=== PATIENT | male | born 1975 | race Caucasian/White ===

== ENCOUNTER 2024-09-19 10:53 | Emergency (ER) | payer OTHER, SELFPAY ==
[2024-09-19 11:18] VITALS: BP 139/91; PULSE 78; RESP 18; TEMP 36.6; O2SAT 100
--- NOTE | 2024-09-19 12:13 | ED.HEATRA ---
HPI - Head Injury General Chief complaint: Head Injury <Camille Fulton PA-C - Last Filed: 09/19/24 17:44> Stated complaint: Head laceration <Camille Fulton PA-C - Last Filed: 09/19/24 17:44> Time Seen by Provider: 09/19/24 12:13 <Camille Fulton PA-C - Last Filed: 09/19/24 17:44> Focused HPI: This is a 49 year old male that presents to the ER for head injury. Sustained just prior to arrival. Reports he bent forward and hit the corner of a shelf. Reports a laceration to the scalp. Denies loss of consciousness, vision changes, vomiting, numbness. He is not on anticoagulation. Unsure of last tetanus vaccination. GENERAL: Well-appearing, well-nourished, and in no acute distress. HEAD: Normocephalic. 1.5cm superficial flap laceration to the top of the scalp CHEST: Clear to auscultation. ?No respiratory distress. HEART: Regular rate and rhythm.? NEURO: ?Alert and oriented x3. Patient screened in triage and initial orders placed.? ?Additional care and disposition to be based upon?diagnostic testing and treatment. <Camille Fulton PA-C - Last Filed: 09/19/24 17:44> History of Present Illness HPI Narrative: Agree with HPI <Denny Lance MD - Last Filed: 09/19/24 15:06> Related Data Allergies/Adverse reactions: Allergies Allergy/AdvReac Type Severity Reaction Status Date / Time No Known Allergies Allergy Verified 09/19/24 11:22 <Camille Fulton PA-C - Last Filed: 09/19/24 17:44> Review of Systems Constitutional: Constitutional: Reports no additional constitutional complaints <Denny Lance MD - Last Filed: 09/19/24 15:06> Integumentary/Breasts: Skin/Breast: Reports system reviewed and no additional complaints, except as docu <Denny Lance MD - Last Filed: 09/19/24 15:06> Neurologic: Reports system reviewed and no additional complaints, except as documented <Denny Lance MD - Last Filed: 09/19/24 15:06> PMFSH Past Medical History Medical History: Medical History (Updated 09/19/24 @ 17:44 by Camille Fulton PA-C) Healthy adult male <Camille Fulton PA-C - Last Filed: 09/19/24 17:44> Exam Narrative: GENERAL: Well-appearing, well-nourished, and in no acute distress. HEAD: Normocephalic, 1.5 cm semi circular laceration that does not lift like a flap. ENT: Mucous membranes moist. NECK: Supple. NEURO: Alert and oriented x3. PSYCH: Normal mood and affect. <Denny Lance MD - Last Filed: 09/19/24 15:06> Course Course Emergency Course: One staple placed. Tetanus updated. Discharge home. Educated on staple remover. <Denny Lance MD - Last Filed: 09/19/24 15:06> Vital Signs Vital signs: Vital Signs Temperature 97.8 F 09/19/24 11:18 Pulse Rate 78 09/19/24 11:18 Respiratory Rate 18 09/19/24 11:18 Blood Pressure 139/91 H 09/19/24 11:18 Pulse Oximetry 100 09/19/24 11:18 Oxygen Delivery Room Air 09/19/24 11:18 Temperature 98.9 F 09/19/24 16:02 Pulse Rate 76 09/19/24 16:02 Respiratory Rate 18 09/19/24 16:02 Blood Pressure 135/72 09/19/24 16:02 Pulse Oximetry 100 09/19/24 16:02 Oxygen Delivery Room Air 09/19/24 11:18 <Camille Fulton PA-C - Last Filed: 09/19/24 17:44> Vital Signs Temperature 97.8 F 09/19/24 11:18 Pulse Rate 78 09/19/24 11:18 Respiratory Rate 18 09/19/24 11:18 Blood Pressure 139/91 H 09/19/24 11:18 Pulse Oximetry 100 09/19/24 11:18 Oxygen Delivery Room Air 09/19/24 11:18 Temperature 98.9 F 09/19/24 16:02 Pulse Rate 76 09/19/24 16:02 Respiratory Rate 18 09/19/24 16:02 Blood Pressure 135/72 09/19/24 16:02 Pulse Oximetry 100 04/28/25 16:02 Oxygen Delivery Room Air 09/19/24 11:18 <Denny Lance MD - Last Filed: 09/19/24 15:06> Procedures Laceration Laceration 1: Date: 09/19/24 <Denny Lance MD - Last Filed: 09/19/24 15:06> Time: 15:03 <Denny Lance MD - Last Filed: 09/19/24 15:06> Site: scalp <Denny Lance MD - Last Filed: 09/19/24 15:06> Size (cm): 1.5 <Denny Lance MD - Last Filed: 09/19/24 15:06> Description: other (semicircular) <Denny Lance MD - Last Filed: 09/19/24 15:06> Depth: simple, single layer <Denny Lance MD - Last Filed: 09/19/24 15:06> Pre-repair: irrigated <Denny Lance MD - Last Filed: 09/19/24 15:06> ====== Skin Level ======: Skin layer closed with: shun <Denny Lance MD - Last Filed: 09/19/24 15:06> Number of sutures: 1 <Denny Lance MD - Last Filed: 09/19/24 15:06> ====== Subcutaneous Layer ======: ====== Muscle Layer ======: ====== Tendon Layer ======: Discharge Plan Discharge Clinical Impression: Laceration of scalp Qualifiers: Encounter type: initial encounter Qualified Code(s): S01.01XA - Laceration without foreign body of scalp, initial encounter <Camille Fulton PA-C - Last Filed: 09/19/24 17:44> Patient Disposition: Home <CHEL Phillips Last Filed: 09/19/24 17:44> Condition: Stable <CHEL Phillips Last Filed: 09/19/24 17:44> Instructions: Staple Care (ED) <Camille Fulton PA-C - Last Filed: 09/19/24 17:44> Additional Instructions: Remove your staple in 5 days. You may return to work. Return the ER if the wound is draining pus, you have fever over 100.4? F, or you have additional concerns. <Camille Fulton PA-C - Last Filed: 09/19/24 17:44> Patient Language: Setswana <Cmaille Fulton PA-C - Last Filed: 09/19/24 17:44> Follow-up/Referrals: PHYSICIAN,SUPERVISOR WORD PROCESSING [Primary Care Provider] - <Camille Fulton PA-C - Last Filed: 09/19/24 17:44> Stand Alone Forms: Work/School Release IP <Camille Fulton PA-C - Last Filed: 09/19/24 17:44>
[2024-09-19] MEDS: TETANUS,DIPHTHERIA,AC PERTUSSIS ADULT (0.5 ML) BOOSTRIX IM (12:41)
[2024-09-19 16:02] VITALS: BP 135/72; PULSE 76; RESP 18; TEMP 37.2; O2SAT 100
--- OUTSIDE RECORDS SUMMARY | 2024-09-19 17:48 | XMS_ITS | Continuity of Care Document ---
Author Name [facility] Address [address] [place] [address] Organization [facility] Care Team Providers Care Cardiovascular Disease Specialist Name Role [facility] Unavailable Problems Problem Status Onset Date Problem Type Date of Resolution Comme nts Source After-cataract with vision obscured (disorder) Active Condition Encounters Location Location Details Encounter Type Encounter Number Reason For Visit Attending Provider ADM Date DC Date Status Source [facility] OUTPATIENT [id number] 1 [place] [facility] [place] Procedures Procedure Code Date Perfomer Comments Source Cataracts- [facility]
--- OUTSIDE RECORDS SUMMARY | 2024-09-19 17:48 | XMS_ITS | Continuity of Care Document ---
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 Glucophage 500 mg Tab take 1 tablet by oral route 2 times every day. NEED APPT and LABS!!! - Active Please make an appt to be seen for any additional refills! ibuprofen 600 mg Tab take 1 tablet (600MG) by oral route 3 times every day with food 600 MG - Active Aleve 220 mg Tab take 1 tablet (220MG) by oral route every 12 hours as needed 220 MG - Active Elocon 0.1 % Topical Cream apply by topical route every day a thin layer to the affected area(s) - Active lancets to use TID 250.00 give 1 month supply - Active One Touch Test Strips one touch ultra mini test strips give 1 month supply 250.00checks bs TID - Active Prinivil 20 mg Tab 1 PO QD - No Longer Active NEEDS APPT FOR ANY MORE REFILLS!! Procedures Procedure Date Office/outpatient visit,est, mod 2012 Oximetry Office/outpatient visit,est, mod 2011 Joint Injec/aspirat Small-finger,toe September Depo Medrol 80 MG inj Advance Directives Directive Yes / No Effective Date File Name No Information Encounters Encounter Description Practice Location Reason(s) For Visit Diagnoses Date Provider Providers Copied on Encounter [facility], [address] [facility] [address], [place], [place], [id number], [place] tel:[phone] [facility] No Information 4 Zaid Schneider. [address] [facility], [address], [place], [place], [id number], [place]. tel:[phone] [facility], [address] [place] [address], [place], [place], [address], [place] tel:[phone] [facility] No Information 4 Emigdio Vicente. [address] [facility], [place] [address], [place], [place], [id number], [place]. tel:[phone] [facility], [address] [place] [address], [place], [place], [address], [place] tel:[phone] [facility] No Information 3 Zaid Schneider. [address] [facility], [place] [address], [place], [place], [address], [place]. tel:[phone] Office/outpa tient visit,est, [facility], [address] [place] [address], [place], [place], [address], [place] tel:[phone] [facility] Wrist Pain (chief complaint)di abetes (follow up) (chief complaint)hy pertension (chief complaint) Type II diabetes mellitusHyper tensionRight wrist pain 3 No Information Office/outpa tient visit,est, mod [facility], [address] [place] [address], [place], [place], [id number], [place] tel:[phone] [facility] right hip pain (chief complaint) DYSPNEA/RESP ABNM NECRight hip painSciatica 2 Zaid Schneider. [address] [facility], [address], [place], [place], [address], [place]. tel:[phone] Referring Provider: Wyatt Barker, [address] [facility] [address] [facility], [place], [address] . tel:[phone] [facility], [address] [facility], [place], [place], [id number], [place] tel:[phone] [facility] diabetes (chief complaint)hi p pain (chief complaint)ra sh (chief complaint)Da ndruff (chief complaint) BURSITIS, TROCHANTERIC AREADMII WO CMP UNCNTRLDHYPER LIPIDEMIA NEC/NOSSEBRRH EIC DERMATITIS NOSDERMATITIS NEC 1 Zaid Schneider. [address] [facility], Suite [facility], [place], [place], [address], [place]. tel:[phone] Referring Provider: Wyatt Barker, [address] [place] [address] Suite [facility], [place], [address] . tel:[phone] [facility], [address] [place], [place] [address] [facility], [place], [place], [id number], [place] tel:[phone] [facility] diabetes (chief complaint)hy pertension (chief complaint)hy perlipidemia (chief complaint) BENIGN HYPERTENSIONH YPERLIPIDEMIA NEC/NOSDMII WO CMP UNCNTRLD Jul-0 1 Zaid Schneider. [address] [place] [address], [address], [place], [place], [address], [place]. tel:[phone] Referring Provider: Wyatt Barker, [address] [facility] Suite [facility], [place], [address] . tel:[phone] [facility], [address] [place], [place] [address], [place], [place], [address], [place] tel:[phone] [facility] Diabetic Teaching (chief complaint) DMII WO CMP UNCNTRLD Jul-0 1 No Information Referring Provider: Wyatt Barker, [address] [facility] Suite [facility], [place], [address] . tel:[phone] [facility], [address] [place] [address], [id number], [place] tel:[phone] [facility] No Information 0 Zaid Schneider. [address] [facility], [facility] [address], [place], [place], [address], [place]. [phone] [facility], [address] [place] [address], [id number], [place] tel:[phone] [facility] tests results (chief complaint)di abetes (chief complaint)hy perlipidemia (chief complaint)hy pertension (chief complaint) DMII WO CMP UNCNTRLDBENIG N HYPERTENSIONH YPERLIPIDEMIA NEC/NOSDMII WO CMP UNCNTRLDHYPER LIPIDEMIA NEC/NOSBENIGN HYPERTENSIONS HORTNESS OF BREATH 0 Zaid Schneider. [address] [place] [address], [place] [address], [place], [place], [id number], [place]. tel:[phone] Referring Provider: Wyatt Barker, [address] [place] [address], [place], [address] . tel:[phone] [facility], [address] [place] [address], [id number], [place] tel:[phone] [facility] upper respiratory infection (chief complaint) BENIGN HYPERTENSIONF ATIGUE NECHEADACHEDE PRESSIVE DISORDER NEC 0 Zaid Schneider. [address] [place] [address], [place] [address], [place], [place], [id number], [place]. tel:[phone] Referring Provider: Wyatt Barker, [address] [place] [address], [place], [address] . tel:[phone] Family History Family Member Type Diagnosis Age At Onset Father Problem (finding) throat cancer Mother Problem (finding) Mother Problem (finding) stroke Problem (finding) Mother Problem (finding) coronary arter iosclerosis (Cause Of ) Mother Problem (finding) diabetes rj henderson in first degree relative Immunizations Vaccine Date Status Comments Tdap administered Source: [facility] unization Record Payers Payer name Insurance type Covered alliance party ID Authoriza tirosana(s) [facility] [id number] Social History Type Description Quantity Date Captured Comments Sex Male Smoking Status No Information Chief Complaint And Reason For Visit No Information Reason For Referral Reason For Referral No Information History Of Present Illness Encounter Date Complaint History Of Prese nt Illness hypertension Comorbid conditi ons include diabetes mellitus. It is currently improving. Risk factors include inactive lifestyle, male gender and obesity. Pertinent negatives include chest pain, claudication, confusion, diaphoresis, dyspnea, epistaxis, fatigue, headache, hematuria, irregular heartbeat/palpitations, nausea, tinnitus, transient weakness, tremor, visual disturbances and vomiting. diabetes (follow up) The problem is improving. Risk factors include: family history diabetes mellitus, obesity and sedentary lifestyle. Patient is compliant with using medication, follow-up, and using education materials. He Has been managed with oral medications. Home glucose readings: Min 110, Max 160, Avg 120. Pertinent negatives include blurred vision, burning of extremities, chest pain, constant hunger, dental disease, diarrhea, dysesthesias, dyspnea, erectile dysfunction, foot ulcers, frequent infections, frequent urination, heartburn, hypoglycemic episodes, impotence, increased fatigue, nocturia, polydipsia, slow healing wounds / sores, weight gain and weight loss. Additional information: Pt states blood sugars have been running really well. Interested in controlling diabetes with diet and exercise and barriers to exercise include large family and heavy workload.. Wrist Pain Onset: 3 Days Ag o. It occurs constantly and is worsening. Location: right wrist. The pain radiates to the right arm. The pain is sharp. Context: there was an injury. There are no aggravating factors. There are no relieving factors. Associated symptoms include joint instability, joint tenderness, popping and weakness. Pertinent negatives include bruising, crepitus, decreased mobility, difficulty initiating sleep, limping, locking, nocturnal awakening, nocturnal pain, numbness, spasms, swelling, tingling in the arms and tingling in the legs. Additional information: Pt states he fell and landed on wrist. He states if he puts pressure on it very sharp pain. Functional Status Date Functional Assessmen t No Information Instructions Date Instruction Additional Infor mation Call if symptoms persist Review medication side effects Prescribe medications Order consults Order labs/studies Review medication side effects Renew medications Prescribe medications Call if symptoms persist Call if symptoms persist Renew medications Prescribe medications Review medication side effects Call if symptoms persist Review medication side effects Review medications Call if symptoms persist Order labs/studies Review medication side effects Renew medications Prescribe medications Order consults Order labs/studies Call if symptoms persist Prescribe medications Renew medications Review medication side effects Assessments Type Assessment Date No Information Patient Care Teams Name Effective Dates (start - stop) Status Members No Information
--- OUTSIDE RECORDS SUMMARY | 2024-09-19 17:48 | XMS_ITS | Clinical Summary ---
Author [place] [facility] [place] [address] [facility] Address [address] [place] [address] Care Team Providers Care Manager Immunology Name Role Phone Imelda Fox MD Primary Care Provi cristina Allergies No known active allergies Medications insulin admin supplies insulin pen 28 Units daily 2 Active aspirin 81 mg chewable tabletIndicatio ns:Coronary artery disease involving chinik coronary artery of chinik heart without angina pectoris Take 1 tablet (81 mg total) by mouth daily 90 tablet 3 4 Active canagliflozin (Invokana) 300 mg tabletIndicatio ns:Type 2 diabetes mellitus with hyperglycemia, with long-term current use of insulin (HCC) Take 1 tablet (300 mg total) by mouth daily 90 tablet 4 Active insulin degludec (TRESIBA) 100 unit/mL (3 mL) pen for injectionIndica tions:type 2 diabetes mellitus Inject 0.28 mL (28 Units total) under the skin daily 3 mL 2 4 Active semaglutide (RYBELSUS) 3 mg tabletIndicatio ns:Type 2 diabetes mellitus with hyperglycemia, with long-term current use of insulin (HCC) 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 30 tablet 4 Active cyclobenzaprine (FLEXERIL) 10 mg tabletIndicatio ns:Adhesive capsulitis of right shoulder Take 1 tablet (10 mg total) by mouth nightly as needed for muscle spasms 30 tablet 1 4 Active metFORMIN (GLUCOPHAGE) 1,000 mg tabletIndicatio ns:Type 2 diabetes mellitus with hyperglycemia, with long-term current use of insulin (HCC) Take 1 tablet (1,000 mg total) by mouth daily with breakfast 90 tablet 4 Active atorvastatin (LIPITOR) 80 mg tablet Take 1 tablet (80 mg total) by mouth daily 90 tablet 4 Active carvediloL (Coreg) 12.5 mg tablet Take 1 tablet (12.5 mg total) by mouth 2 (two) times a day with meals 180 tablet 5 Active lisinopriL (PRINIVIL,ZESTR IL) 10 mg tablet Take 1 tablet (10 mg total) by mouth daily 90 tablet 5 Active Active Problems Problem Noted Date Diagnosed Date Type 2 diabetes mellitus wit h hyperglycemia, with long-term current use of insulin 11/11/2023 Assessment & Plan (11/11/2023 2:19 PM CDT): Chronic, worse Will adjust medication Will place referral to endo Will refer to diabetes education Call for questions or concerns Cigarette nicotine dependence without complicati on 11/11/2023 Assessment & Plan (11/11/2023 2:24 PM CDT): Chronic, stable Encouraged to work on cutting down Coronary artery disease invo lving chinik coronary artery of chinik heart without angina pectoris 02/25/2023 Assessment & Plan (11/11/2023 2:19 PM CDT): Chronic, stable Continue aspirin, lipitor, and blood pressure control Call for questions Assessment & Plan (02/25/2023 8:14 AM CDT): Chronic, stable EKG NSR, normal axis, RBBB Will refer to cardiology Continue aspirin, coreg, and lisinopril Will start statin once we have the labs Hypertension, essential 02/25/2023 Assessment & Plan (02/25/2023 8:14 AM CDT): Chronic, stable Continue current regimen Other hyperlipidemia 02/25/2023 Assessment & Plan (02/25/2023 8:15 AM CDT): Chronic, uncontrolled Will start a statin once we have results Type 2 diabetes mellitus with cardiac complicati on 02/25/2023 Assessment & Plan (11/11/2023 2:17 PM CDT): Chronic, worse No history of pancreatitis, thyroid cancer, MEN Will start oral semaglutide Continue insulin, invokana, and metformin for now Will place referral to [facility] endo Referral to diabetes education Lab recheck in 3 months Assessment & Plan (02/25/2023 8:16 AM CDT): Chronic- uncertain level control Continue insulin (uncertain type) Continue metformin and invokana Further guidance with labs Encounters Date Type Department Care Team Description 07/18/2024 Telephone [facility] [address] [facility] [address] [place] [address] Lucila Fragoso NP from Last 3 Months Immunizations Immunization Administration Dates Next Due Influenza, Quadrivalent, Spl it, Preservative Free, Intramuscular 08/10/2016 Influenza, Unspecified 05/28/2023(Deferr ed: Patient Refused),02/25/2023(Deferred: Patient decision),02/25/2023(Deferred: Patient Refused),02/22/2023(Deferred: Patient Refused),02/22/2022(Deferred: Patient Refused),02/22/2022(Deferred: Patient decision) MMR 12/31/2007 Pneumococcal Polysaccharide PPV23 08/10/2016 Td, adsorbed 05/12/2001,02/17/1991 Tdap 02/06/2017 Surgical History Surgery Date Site/Laterality Comments CATARACT EXTRACTION 04/13/2011 CORONARY ANGIOPLASTY WITH STENT PLACEMENT Medical History Medical History Date Comments Cataract 02/02/2011 Diabetes mellitus (HCC) Hypertension 04/04/2010 Heart attack (HCC) 2016 Family History Medical History Relation Name Comments Cancer Father Kapil Duarte Hypertension Father Kapil Duarte Diabetes Maternal Grandmother Aniya Briones Diabetes Mother More Briones Early Mother More Briones Heart attack Mother More Brioens Heart disease Mother More Briones Hypertension Mother More Briones Stroke Mother More Briones Vision loss Mother More Briones Diabetes Mother's Sister Eitan Dempsey Hypertension Mother's Sister Eitan Dempsey Kidney disease Mother's Sister Eitan Dempsey Relation Name Status Comments Father Kapil Duarte Maternal Grandmother Aniya Briones Mother More Briones Mother's Sister Eitan Dempsey Social History Tobacco Use Types Packs/Day Years Used Date Smoking Tobacco: Every Day Cigarettes 0.5 11.1 Started: 08/26/2013 Smokeless Tobacco: Never Tobacco Cessation:Ready to Q uit: Yes AUDIT-C Answer Date Recorded Q1: How often do you have a drink containing alcohol? 4 or more times a week 11/11/2023 Q2: How many drinks containi ng alcohol do you have on a typical day when you are drinking? 3 or 4 Q3: How often do you have si x or more drinks on one occasion? Never 11/11/2023 PHQ-2 Answer Date Recorded PHQ-2 Total Score (If total score is 3 or more points, staff should administer the PHQ-9) 0 11/11/2023 Personal Safety Answer Date Recorded Getting School Help Needed Not on file 05/05 Sex and Gender Information Value Date Recorded Sex Assigned at Not on file Legal Sex Male 2:15 PM CDT Gender Identity Male 11/27/2022 6:16 AM CDT Sexual Orientation Straight 11/27/2022 6: 16 AM CDT Obstetrics History Last Filed Vital Signs Vital Sign Reading Time Taken Comments Blood Pressure 112/76 11/11/2023 1:46 PM CDT Pulse 74 11/11/2023 1:46 PM CDT Temperature 36.7 C (98 F) 11/11/2023 1:46 PM CDT Respiratory Rate 16 11/11/2023 1:46 PM CDT Oxygen Saturation 98% 11/11/2023 1:46 PM CDT Inhaled Oxygen Concentration - - Weight 95.1 kg (209 lb 9.6 oz) 11/11/2023 1:46 P M CDT Height 185.4 cm (6' 1 ) 11/11/2023 1:46 PM CDT Body Mass Index 27.65 11/11/2023 1:46 PM CDT Plan of Treatment Health Maintenance Due Date Last Done Comments Hepatitis C Screening 1975 Hepatitis B Screening 1993 Regular Well Visit/Exam 18-64 1993 Pneumococcal vaccine <65 (2 of 2 - PCV) 08/10/2017 08/10/2016 Albumin Creatinine Ratio, Urine 02/26/2024 Foot Exam 02/26/2024 02/25/2023 Lipid Panel 02/26/2024 02/25/2023 Dilated Eye Exam 03/11/2024 03/11/2023 Hemoglobin A1C 05/10/2024 11/09/2023, 02/25/2023 eGFR 11/08/2024 11/09/2023, 02/25/2023 Depression Screening 11/10/2024 11/11/2023, 05/28/2023, 02/25/2023, Additional history exists Influenza Vaccine (Season Ended) 2025 08/11/19 17 Colon Cancer Screening-DNA Stool 09/08/2026 09/09/19 24 DTaP/Tdap/Td Vaccine (2 - Td or Tdap) 02/06/2027 02/06/2017, 05/12/2001, 02/17/1991 Procedures Procedure Name Priority Date/Time Associated Diagnosis Comments EGFR Routine 11/09/2023 7:42 AM CDT Type 2 diabetes mellitus with cardiac complication (HCC) HEMOGLOBIN A1C Routine 11/09/2023 7:42 AM CDT Type 2 diabetes mellitus with cardiac complication (HCC) STOOL DNA COLOGUARD Routine 09/09/2023 12:55 PM CDT Colon cancer screening HM DIABETES EYE EXAM Routine 03/11/2023 ALBUMIN CREATININE RATIO, URINE Routine 02/25/2023 9:07 AM CDT Type 2 diabetes mellitus with cardiac complication (HCC) LIPID PANEL Routine 02/25/2023 9:02 AM CDT Screening, lipid from Last 3 Months or Most Recently Relevant to Health Maintenance Results * eGFR (11/09/2023 7:42 AM CDT) Pathologist [facility] eGFR >90 >=60 mL/min/1. 73 m2 Comment: Interpretive Data Reference Interval Normal >/= 90 mL/min/1.73m2 Mildly decreased* 60 - 89 mL/min/1.73m2 Mildly to moderately decreased 45 - 59 mL/min/1.73m2 Moderately to severely decreased 30 - 44 mL/min/1.73m2 Severely decreased 15 - 29 mL/min/1.73m2 Kidney Failure < 15 mL/min/1.73m2 *Relative to young adult level Estimated glomerular filtration rate is determined by the 2020 CKD-EPI equation recommended by the National Kidney Foundation (A Unifying Approach to GFR Estimation: Recommendations of the NKF-ASK Task Force on Reassessing the Inclusion of Race in Diagnosing Kidney Disease, JASN 2020). The CKD-EPI equation should not be used for patients with unstable renal function and has not been validated in children and those over 70. Current interpretive data was last reviewed 2021. Testing performed by: [address] [address] Blood 11/09/2023 7:42 AM CDT 11/09/2023 12:06 PM CDT us Imelda Fox MD LAB BLOOD ORDERABLE S Final Result [facility] [address] [facility] Department [place] [address] * (ABNORMAL) Hemoglobin A1c (11/09/2023 7:42 AM CDT) Hgb A1C 8.5(H) 4.0 - 5.6 % Comment:Testing performed by : [address] [address] Estimated Average Glucose 197 mg/dL [facility] MIRANDA Comment: The ADA recommends reporting an estimated Average Glucose (eAG) with all Hemoglobin A1c results using the equation derived from a study of 507 normal and diabetic adults. Minority populations were underrepresented and children were not included. (Diabetes Care 31:7873-8366, 2008). The eAG is not equivalent to a fasting glucose. Testing performed by: [address] [address] Blood 11/09/2023 7:42 AM CDT 11/09/2023 12:06 PM CDT us Imelda Fox MD LAB BLOOD ORDERABLE S Final Result [facility] [address] [facility] Department [place] [address] * Stool DNA - Cologuard (09/09/2023 12:55 PM CDT) Stool DNA - Cologuard Negative Negative [employer] (CLIA #:[id number]) Comment: NEGATIVE TEST RESULT. A negative Cologuard result indicates a low likelihood that a colorectal cancer (CRC) or advanced adenoma (adenomatous polyps with more advanced pre-malignant features) is present. The chance that a person with a negative Cologuard test has a colorectal cancer is less than 1 in 1500 (negative predictive value >99.9%) or has an advanced adenoma is less than 5.3% (negative predictive value 94.7%). These data are based on a prospective cross-sectional study of 10,000 individuals at average risk for colorectal cancer who were screened with both Cologuard and colonoscopy. (Corey Kay al, N Engl J Med 2014;370(14):2446-6388) The normal value (reference range) for this assay is negative. COLOGUARD RE-SCREENING RECOMMENDATION: Periodic colorectal cancer screening is an important part of preventive healthcare for asymptomatic individuals at average risk for colorectal cancer. Following a negative Cologuard result, the [place] [employer] Society and U.S. Multi-Society Task Force screening guidelines recommend a Cologuard re-screening interval of 3 years. References: [place] [employer] Guideline for Colorectal Cancer Screening: https://www.cancer.org/cancer/hkcgs-xvurkq-ptzjpi/pqafpqquc-vtxrrmtlo-tluqvey/ac s-rec ommendations.html.; Lester ARANGO, Sue GARCÍA, Hieu SCHMITZ, Colorectal Cancer Screening: Recommendations for Physicians and Patients from the U.S. Multi-Society Task Force on Colorectal Cancer Screening , Am J Gastroenterology 2017; 112:4466-6511. TEST DESCRIPTION: Composite algorithmic analysis of stool DNA-biomarkers with hemoglobin immunoassay. Quantitative values of individual biomarkers are not reportable and are not associated with individual biomarker result reference ranges. Cologuard is intended for colorectal cancer screening of adults of either sex, 45 years or older, who are at average-risk for colorectal cancer (CRC). Cologuard has been approved for use by the U.S. FDA. The performance of Cologuard was established in a cross sectional study of average-risk adults aged 50-84. Cologuard performance in patients ages 45 to 49 years was estimated by sub-group analysis of near-age groups. Colonoscopies performed for a positive result may find as the most clinically significant lesion: colorectal cancer [4.0%], advanced adenoma (including sessile serrated polyps greater than or equal to 1cm diameter) [20%] or non- advanced adenoma [31%]; or no colorectal neoplasia [45%]. These estimates are derived from a prospective cross-sectional screening study of 10,000 individuals at average risk for colorectal cancer who were screened with both Cologuard and colonoscopy. (Corey Wolfe et al, N Engl J Med 2014;370(14):9365-8176.) Cologuard may produce a false negative or false positive result (no colorectal cancer or precancerous polyp present at colonoscopy follow up). A negative Cologuard test result does not guarantee the absence of CRC or advanced adenoma (pre-cancer). The current Cologuard screening interval is every 3 years. ([place] [employer] Society and U.S. Multi-Society Task Force). Cologuard performance data in a 10,000 patient pivotal study using colonoscopy as the reference method can be accessed at the following location: www.[employer]Monee/results. Additional description of the Cologuard test process, warnings and precautions can be found at www.[employer]omer[employer].com. Stool 09/09/2023 12:5 5 PM CDT 09/10/2023 9:57 AM CDT us Imelda Fox MD LAB BODY FLUIDS AND STOOLS ORDERABLES Final Result [employer] (CLIA #:[id number]) [place] [place] [address] * DIABETES EYE EXAM (03/11/2023) SCRIBED DIABETIC DILATED EYE EXAM Normal Historical Provider HEALTH MAINTENANCE Final Result * Albumin Creatinine Ratio, Urine (02/25/2023 9:07 AM CDT) Albumin Ur <12.0 mg/L [facility] Comment: Interpretive Data No reference range established. Current interpretive data was last revised 2018. Testing performed by: [address] [address] Creatinine Ur 91.9 mg/dL [facility] Comment: Interpretive Data No reference range established. Current interpretive data was last revised 2018. Testing performed by: [address] [address] Albumin Creatinine Ratio, Ur <13 1 - 29 mg/g [facility] Comment:Testing performed by : [facility], [address] [place] [address]., [address] Urine 02/25/2023 9:07 AM CDT 02/25/2023 11:23 AM CDT Imelda Fox MD LAB URINE ORDERABLE S Final Result Performing Organization Address City/State/[facility] Co de Phone Number [facility] [address] [facility] Department of Laboratories [place], [place] [id number] * (ABNORMAL) Lipid panel (02/25/2023 9:02 AM CDT) Cholesterol 245(H) 30 - 199 mg/dL [facility] MIRANDA Comment: Interpretive Data Ages < or = 19 years Acceptable: <170 mg/dL Borderline high: 170-199 mg/dL High: >or= 200 mg/dL Ages > or = 20 years Desirable: <200 mg/dL Borderline high: 200-239 mg/dL High: >or= 240 mg/dL Literature References: 1. Expert Panel on Integrated Guidelines for Cardiovascular Health and Risk Reduction in Children and Adolescents. Pediatrics 2011;128:S213 2. NCEP Expert Panel. Circulation 2004;110:227 Current Interpretive Data was last revised on 2018. Testing performed by: [address] [address] Triglycerides 177(H) <=149 mg/dL [facility] Comment: Interpretive Data Ages < or = 9 years Acceptable: <75 mg/dL Borderline high: 75-99 mg/dL High: >or= 100 mg/dL Ages 10 to 20 years Acceptable: <90 mg/dL Borderline high: 90-129 mg/dL High: >or= 130 mg/dL Ages > or = 20 years Desirable: <150 mg/dL Borderline high: 150-199 mg/dL High: 200-499 mg/dL Very high: >or= 499 mg/dL Literature References: 1. Expert Panel on Integrated Guidelines for Cardiovascular Health and Risk Reduction in Children and Adolescents. Pediatrics 2011;128:S213 2. NCEP Expert Panel. Circulation 2004;110:227 Current Interpretive Data was last revised on 2018. Testing performed by: [address] [address] HDL 48 >=40 mg/dL [facility] Comment: Interpretive Data Ages < or = 19 years Acceptable: >45 mg/dL Borderline low: 40-45 mg/dL Low: <40 mg/dL Ages > or = 20 years Desirable: >or= 60 mg/dL Low: <40 mg/dL Literature References: 1. Expert Panel on Integrated Guidelines for Cardiovascular Health and Risk Reduction in Children and Adolescents. Pediatrics 2011;128:S213 2. NCEP Expert Panel. Circulation 2004;110:227 Current Interpretive Data was last revised on 2018. Testing performed by: [address] [address] LDL, calculated 162(H) <=129 mg/dL [facility] Comment: Interpretive Data Ages < or = 19 years Acceptable: <110 mg/dL Borderline high: 110-129 mg/dL High: >or= 130 mg/dL Ages > or = 20 years Optimal: <100 mg/dL Near optimal: 100-129 mg/dL Borderline high: 130-159 mg/dL High: >160 mg/dL Literature References: 1. Expert Panel on Integrated Guidelines for Cardiovascular Health and Risk Reduction in Children and Adolescents. Pediatrics 2011;128:S213 2. NCEP Expert Panel. Circulation 2004;110:227 Current Interpretive Data was last revised on 2018. Testing performed by: [address] [address] Non-HDL Cholesterol 197 mg/dL [facility] Comment: Interpretive Data Ages < or = 19 years Acceptable: <120 mg/dL Borderline high: 120-144 mg/dL High: >145 mg/dL Ages > or = 20 years When triglycerides are >200 mg/dL, Non-HDL cholesterol is a secondary target of therapy with treatment goals that are 30 mg/dL greater than the LDL cholesterol target. Literature References: 1. Expert Panel on Integrated Guidelines for Cardiovascular Health and Risk Reduction in Children and Adolescents. Pediatrics 2011;128:S213 2. NCEP Expert Panel. Circulation 2004;110:227 Current Interpretive Data was last revised on 2018. Testing performed by: [address] [address] Chol/HDL ratio 5 [facility] Comment:Testing performed by : [address] [address] Blood 02/25/2023 9:02 AM CDT 02/25/2023 11:23 AM CDT us Imelda Fox MD LAB BLOOD ORDERABLE S Final Result Performing Organization Address City/State/[facility] Co de Phone Number [facility] [address] [facility] Department of Laboratories [place], [place] [phone] from Last 3 Months or Most Recently Relevant to Health Maintenance Care Teams Manager Immunology Relationship Specialty Start Date End Date Imelda Fox MD [address] [place], [place] [phone] PCP - General Family Medicine 02/25/23
--- OUTSIDE RECORDS SUMMARY | 2024-09-19 17:48 | XMS_ITS | Referral Summary ---
Author Organization [facility] [address] [place] [address] Care Team Providers Care Air Pollution Inspector Name Role Phone Imelda Fox MD Primary Care [facility] Encounters Date Type Department Care Team Description 07/18/[address] [facility] Cardiology [address] [facility] [address] [address] Lucila Fragoso NP from Last 3 Months Allergies No known active allergies Medications insulin admin supplies insulin pen 28 Units daily 2 Active aspirin 81 mg chewable tabletIndicatio ns:Coronary artery disease involving [place] coronary artery of [place] heart without angina pectoris Take 1 tablet [...] 1 tablet (3 mg total) by mouth shank burnisher before breakfast 30 tablet 4 Active cyclobenzaprine [...] cutting down Coronary artery disease invo lving [place] coronary artery of [place] heart without angina pectoris 02/25/2023 Assessment & [...] metformin and invokana Further guidance with labs Immunizations Immunization Administration Dates Next Due Influenza, Quadrivalent, Spl it, Preservative Free, Intramuscular 08/10/2016 Influenza, Unspecified 05/28/2023(Deferr ed: Patient Refused),02/25/2023(Deferred: Patient decision),02/25/2023(Deferred: Patient Refused),02/22/2023(Deferred: Patient Refused),02/22/2022(Deferred: Patient Refused),02/22/2022(Deferred: Patient decision) MMR 12/31/2007 Pneumococcal Polysaccharide PPV23 08/10/2016 Td, adsorbed 05/12/2001,02/17/1991 Tdap 02/06/2017 Social History Tobacco Use Types Packs/Day Years [...] Orientation Straight 11/27/2022 6: 16 AM CDT Last Filed Vital Signs Vital Sign Reading [...] 11/11/2023 1:46 PM CDT Plan of Treatment Not on file Procedures Procedure Name Priority Date/Time Associated Diagnosis [...] Results * eGFR (11/09/2023 7:42 AM CDT) eGFR >90 >=60 mL/min/1. 73 m2 Comment: [...] was last reviewed 2021. Testing performed by: [facility], [address] [place] [address]., [id number] Blood 11/09/2023 7:42 AM CDT 11/09/2023 12:06 PM CDT us Imelda Fox MD LAB BLOOD ORDERABLE S Final Result [facility] [address] [facility] Department [place] [address] * (ABNORMAL) Hemoglobin A1c (11/09/2023 7:42 AM CDT) Hgb A1C 8.5(H) 4.0 - 5.6 % Comment:Testing performed by : [address] [address] Estimated Average Glucose 197 mg/dL SINDHU MIRANDA Comment: The ADA recommends reporting an estimated Average Glucose (eAG) with all Hemoglobin A1c results using the equation derived from a study of 507 normal and diabetic adults. Minority populations were underrepresented and children were not included. (Diabetes Care 31:7481-4792, 2008). The eAG is not equivalent to a fasting glucose. Testing performed by: [facility], [address] [place] [address]., [id number] Blood 11/09/2023 7:42 AM CDT 11/09/2023 12:06 PM CDT us Imelda Fox MD LAB BLOOD ORDERABLE S Final Result SINDHU [address] [facility] Department [place] [address] * Stool DNA - Cologuard (09/09/2023 12:55 PM CDT) Pathologist [facility] Stool DNA - Cologuard Negative Negative import2 (CLIA #:[id number]) Comment: NEGATIVE TEST RESULT. A negative Cologuard [...] screened with both Cologuard and colonoscopy. (Corey TRalph et al, N Engl J Med 2014;370(14):1349-7004) The normal value (reference range) for this assay is negative. COLOGUARD RE-SCREENING RECOMMENDATION: Periodic colorectal cancer screening is an important part of preventive healthcare for asymptomatic individuals at average risk for colorectal cancer. Following a negative Cologuard result, the [place] [employer] and U.S. Multi-Society Task Force screening guidelines recommend a Cologuard re-screening interval of 3 years. References: [place] [employer] Guideline for Colorectal Cancer Screening: https://www.cancer.org/cancer/thanr-kbujil-vcbzdz/sxjvrbqvd-wjohbechy-zaprslb/ac s-rec ommendations.html.; Lester ARANGO, Sue GARCÍA, Hieu SCHMITZ, Colorectal Cancer Screening: Recommendations for Physicians and Patients from the U.S. Multi-Society Task Force on Colorectal Cancer Screening , Am J Gastroenterology 2017; 112:8619-6811. TEST DESCRIPTION: Composite algorithmic analysis of stool [...] Wolfe et al, N Engl J Med 2014;370(14):7914-2881.) Cologuard may produce a false negative or false positive result (no colorectal cancer or precancerous polyp present at colonoscopy follow up). A negative Cologuard test result does not guarantee the absence of CRC or advanced adenoma (pre-cancer). The current Cologuard screening interval is every 3 years. ([place] [employer] and U.S. Multi-Society Task Force). Cologuard performance data in a 10,000 patient pivotal study using colonoscopy as the reference method can be accessed at the following location: www.[employer]/results. Additional description of the Cologuard test process, warnings and precautions can be found at www.[employer].com. Stool 09/09/2023 12:5 5 PM CDT 09/10/2023 9:57 AM CDT Imelda Fox MD LAB BODY FLUIDS AND STOOLS ORDERABLES Final Result Performing Organization Address City/[facility]/ZIP Co de Phone Number [facility] (CLIA #:[id number]) [place] [address] * DIABETES EYE EXAM (03/11/2023) SCRIBED DIABETIC DILATED EYE EXAM Normal Historical Provider HEALTH MAINTENANCE Final Result * Albumin Creatinine Ratio, Urine (02/25/2023 9:07 AM CDT) Albumin Ur <12.0 mg/L SINDHU MIRANDA Comment: Interpretive Data No reference range established. Current interpretive data was last revised 2018. Testing performed by: [facility], [address] [place] [address]., [id number] Creatinine Ur 91.9 mg/dL SINDHU MIRANDA Comment: Interpretive Data No reference range established. Current interpretive data was last revised 2018. Testing performed by: [facility], [address] [place] [address]., [id number] Albumin Creatinine Ratio, Ur <13 1 - 29 mg/g SINDHU MIRANDA Comment:Testing performed by : [facility], [address] [place] [address]., [id number] Urine 02/25/2023 9:07 AM CDT 02/25/2023 11:23 AM CDT Imelda Fox MD LAB URINE ORDERABLE S Final Result SIND[facility] [address] [facility] Department [place] [address] * (ABNORMAL) Lipid panel (02/25/2023 9:02 AM [...] last revised on 2018. Testing performed by: [address] [address] Triglycerides 177(H) <=149 mg/dL SINDHU Comment: Interpretive [...] last revised on 2018. Testing performed by: [address] [address] HDL 48 >=40 mg/dL SINDHU Comment: Interpretive [...] last revised on 2018. Testing performed by: [address] [address] LDL, calculated 162(H) <=129 mg/dL SINDHU Comment: [...] last revised on 2018. Testing performed by: [address] [address] Non-HDL Cholesterol 197 mg/dL SINDHU Comment: Interpretive [...] last revised on 2018. Testing performed by: [address] [address] Chol/HDL ratio 5 SINDHU Comment:Testing performed by : [address] [address] Blood 02/25/2023 9:02 AM CDT 02/25/2023 11:23 AM CDT us Imelda Fox MD LAB BLOOD ORDERABLE S Final Result [facility] [address] [facility] Department [place] [address] from Last 3 Months or Most Recently Relevant to Health Maintenance Care Teams Air Pollution Inspector Relationship Specialty Start Date End Date Imelda Fox MD [address] [place] [address] PCP - General Family Medicine 02/25/23
--- OUTSIDE RECORDS SUMMARY | 2024-09-19 17:48 | XMS_ITS | Clinical Summary ---
Author Organization [facility] Address [facility] [place] [address] Care Team Providers Care Museum Tour Guide Name Role Phone Mikki Yo MD Unavailable [phone] Social History Tobacco Use Types Packs/Day Years Used Date Smoking Tobacco: Never Assessed Sex and Gender Information Value Date Recorded Sex Assigned at Not on file Legal Sex Male 8:31 AM CDT Gender Identity Not on file Sexual Orientation Not on file Plan of Treatment Health Maintenance Due Date Last Done Comments Colorectal Cancer Screening Colonoscopy (10 Years) 1975 Annual Physical 1978 Hepatitis C 1993 DTaP, Tdap and Td Vaccines ( 1 - Tdap) 1994 Hepatitis B Vaccines (1 of 3 - 19+ 3-dose series) 1994 COVID-19 Vaccine ( - 2023-2 5 season) 2024 Meningococcal B Vaccine Aged Out No l onger eligible based on patient's age to complete this topic Meningococcal Vaccine Aged Out No elkin noemy eligible based on patient's age to complete this topic Pneumococcal Vaccine: Pediat rics (0 to 5 Years) and At-Risk Patients (6 to 49 Years) Aged Out No longer eligible b ased on patient's age to complete this topic RSV Immunizations Under 20 Months Aged Out No longer eligible based on patient's age to complete this topic Care Teams Museum Tour Guide Relationship Specialty Start Date End Date Mikki Yo MD [facility]. [facility] [address] [place] [address] [place] [employer] CARDIOVASCULAR DISEASE 05/25/16
== END 2024-09-19 15:50 | disposition home or self-care (01) ==
LOC: ANHED 15:43
PROVIDERS: Emergency Provider Emergency Medicine
DX: S01.01XA Laceration without foreign body of scalp, initial encounter (principal); Z23 Encounter for immunization; W22.09XA Striking against other stationary object, initial encounter
CPT/HCPCS: 12001; 90471; 90715; 99283